=== PATIENT | female | born 1935 | race Caucasian/White ===

== ENCOUNTER 2020-07-04 11:04 | Emergency (ER) | payer MEDICARE, OTHER | END 2020-07-04 14:09 | disposition home or self-care (01) | LOC: FER 11:04 | DX: S01.511A Laceration without foreign body of lip, initial encounter (principal); S80.02XA Contusion of left knee, initial encounter; R07.9 Chest pain, unspecified; J43.9 Emphysema, unspecified; Z95.0 Presence of cardiac pacemaker; Z96.653 Presence of artificial knee joint, bilateral; Z88.0 Allergy status to penicillin; Z88.5 Allergy status to narcotic agent; Z79.01 Long term (current) use of anticoagulants; Z79.899 Other long term (current) drug therapy; W19.XXXA Unspecified fall, initial encounter; Y93.01 Activity, walking, marching and hiking; Y92.410 Unspecified street and highway as the place of occurrence of the external cause | CPT/HCPCS: 70450; 71046; 73560 ==

== ENCOUNTER 2021-06-24 12:48 | Emergency (ER) | payer MEDICARE, OTHER ==
[2021-06-24 15:29] LABS: BASOPHIL 0.4 % (0-2); EOSINOPHIL 0.8 % (0-7); HCT 43.6 % (37.0-47.0); HGB 14.5 g/dl (12.5-16.0); MCH 32.7 pg (25.0-31.0); MCHC 33.3 g/dL (32.0-36.0); MCV 98.4 fL (78.0-100.0); MONOCYTE 8.2 % (0-12); MPV 10.5 fL (6.0-9.5); NRBC 0; PLT 168 K/uL (150-400); RBC 4.43 M/uL (4.20-5.40); WBC 7.7 K/uL (4.0-10.5)
[2021-06-24 16:51] LABS: ALBUMIN 4.3 g/dL (3.4-5.0); BILIRUBIN - TOTAL 0.7 mg/dL (0.2-1.0); BUN/CREAT RATIO (CALC) 23.7 RATIO; CREATININE 0.76 mg/dL (0.51-0.95); GLOBULIN (CALCULATION) 2.8 g/dL; POTASSIUM 4.2 mmol/L (3.5-5.1); TOTAL PROTEIN 7.1 g/dL (6.4-8.2)
== END 2021-06-24 18:11 | disposition home or self-care (01) ==
LOC: FER 12:48
PROVIDERS: Emergency Medicine
DX: I10 Essential (primary) hypertension (principal); Z86.73 Personal history of transient ischemic attack (TIA), and cerebral infarction without residual deficits; Z79.01 Long term (current) use of anticoagulants; Z79.899 Other long term (current) drug therapy; Z88.0 Allergy status to penicillin; Z88.5 Allergy status to narcotic agent
CPT/HCPCS: 36415; 70450; 71045; 80053; 84484; 85025; 93005; J3490

== ENCOUNTER 2022-02-16 12:33 | Day surgery (SDCO) | payer MEDICARE, OTHER ==
[~2022-02-16] VITALS: Ht 162.6 cm; Wt 59.4 kg
[2022-02-16 14:03] LABS: BASOPHIL 0.5 % (0-2); EOSINOPHIL 0.8 % (0-7); HCT 41.7 % (37.0-47.0); HGB 14.2 g/dl (12.5-16.0); LYMPHOCYTE 16.1 % (15-48); MCH 32.7 pg (25.0-31.0); MCHC 34.1 g/dL (32.0-36.0); MCV 96.1 fL (78.0-100.0); MONOCYTE 8.9 % (0-12); MPV 10.8 fL (6.0-9.5); NEUTROPHIL 73.2 % (41-80); NRBC 0; PLT 171 K/uL (150-400); RBC 4.34 M/uL (4.20-5.40); RDW 12.4 % (11.5-14.0); WBC 7.8 K/uL (4.0-10.5)
[2022-02-16 14:14] LABS: INR 1.3 (0.9-1.2); PROTHROMBIN TIME 15.8 SECONDS (11.9-13.9); PTT 34.9 SECONDS (24.9-34.6)
[2022-02-16 14:29] LABS: ALBUMIN 4.3 g/dL (3.4-5.0); CREATININE 0.69 mg/dL (0.51-0.95); GLOBULIN (CALCULATION) 2.6 g/dL; TOTAL PROTEIN 6.9 g/dL (6.4-8.2)
[2022-02-16 15:23] LABS: BILIRUBIN NEGATIVE (NEGATIVE); BLOOD NEGATIVE Ery/uL (NEGATIVE); CLARITY CLEAR (CLEAR); COLOR YELLOW (YELLOW); GLUCOSE (U) NORMAL (NORMAL); LEUKOCYTES NEGATIVE Leu/uL (NEGATIVE); NITRITE NEGATIVE (NEGATIVE); PROTEIN NEGATIVE (NEGATIVE); SPECIFIC GRAVITY 1.015 (1.001-1.030); UROBILINOGEN 0.2 mg/dL (0.2-1.0)
[2022-02-16] MEDS ORDERED: SKIN TREATMENT400 GM TOP (16:35)
[2022-02-16] MEDS ORDERED: CALCIUM CITRAT200 MG PO (16:36)
[2022-02-16] MEDS ORDERED: ARTHRITIS PAIN150 GM TOP (16:37)
[2022-02-16] MEDS ORDERED: ELIQUIS5 MG PO (16:38)
[2022-02-16] MEDS ORDERED: PRINIVIL10 MG PO (16:38)
[2022-02-16] MEDS ORDERED: DIGITEK125 MCG PO (16:38)
[2022-02-16] MEDS ORDERED: TOPROL XL 50 MG50 MG PO (16:39)
[2022-02-16] MEDS ORDERED: BAZA PROTECT57 GM TOP (16:39)
[2022-02-16] MEDS ORDERED: FLONASE ALLER15.8 ML (16:41)
[2022-02-16] MEDS ORDERED: GAVISCON LIQUI355 ML PO (16:43)
[2022-02-16] MEDS ORDERED: IMODIUM2 MG PO (16:43)
[2022-02-16] MEDS ORDERED: CLARITIN10 MG PO (16:44)
[2022-02-16] MEDS ORDERED: MUCINEX 600MG600 MG PO (16:44)
[2022-02-16] MEDS ORDERED: ONDANSETRON ODT4 MG PO (16:45)
[2022-02-16] MEDS ORDERED: ARTIFICIAL TEA1 EACH OU (16:46)
[2022-02-16] MEDS ORDERED: TUSSIN DM SYRU118 ML PO (16:47)
[2022-02-16] MEDS ORDERED: ACETAMINOPHEN325 MG PO (16:47)
[2022-02-16] MEDS ORDERED: CORICIDIN HBP1 EACH PO (16:48)
[2022-02-17 06:12] LABS: BASOPHIL 0.5 % (0-2); EOSINOPHIL 1.2 % (0-7); HCT 38.7 % (37.0-47.0); HGB 12.9 g/dl (12.5-16.0); LYMPHOCYTE 17.6 % (15-48); MCH 32.2 pg (25.0-31.0); MCHC 33.3 g/dL (32.0-36.0); MCV 96.5 fL (78.0-100.0); MONOCYTE 14.1 % (0-12); MPV 10.3 fL (6.0-9.5); NEUTROPHIL 65.8 % (41-80); NRBC 0; PLT 143 K/uL (150-400); RBC 4.01 M/uL (4.20-5.40); RDW 12.6 % (11.5-14.0); WBC 6.5 K/uL (4.0-10.5)
[2022-02-17 06:38] LABS: BUN/CREAT RATIO (CALC) 19.5 RATIO; CREATININE 0.77 mg/dL (0.51-0.95); POTASSIUM 3.8 mmol/L (3.5-5.1)
--- NOTE | 2022-02-17 15:16 | NUR ---
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 She is independent with mobility. Therapy does not have recommendations for DME or HH services. A report was given to Ghazala Arechiga [facility] Nurse Development Educator, with patient's permission.
--- NOTE | 2022-02-17 23:02 | NUR ---
PT. WAS DROPPING BEATS AND SAMANTHA DOWN TO 52. [employer]OND EXPERT ORDERED PACEMAKER TO BE INTERROGATED. LUCIAN WERNER WITH [employer] SAID THAT EVERYTHING SEEMS TO BE WORKING PROPERLY AND THAT THE MODE HER PACEMAKER IS SET TO ALLOWS HER TO SKIP 2/4 BEATS BEFORE IT WILL DUAL CHAMBER PACE. SHE DID TELL ME TO CALL BACK IF THE PTS. HER GOT IN THE 30'S AND 40'S BECAUSE HER RATE IS SET AT 60. [employer] EXPERT NOTIFED AND TOOK THE HOLD OFF THE METOPROLOL SCHEDULED DOSE. ER,RN
[2022-02-18] MEDS ORDERED: HCTZ12.5 MG PO (09:51)
[2022-02-18] MEDS ORDERED: LISINOPRIL40 MG PO (09:51)
--- NOTE | 2022-02-18 10:58 | NUR ---
DISCHARGE TO BACK [facility] LAST BP 142/58 HR 60. PT WAS STABLE AT TIME OF DISCHARGE,INSTRUCTIONS WAS GIVEN TO PATIENT ATTEMPTED TO CALL [facility]AD[facility] AT [facility] TO DISCUSS MEDICATION CHANGES
== END 2022-02-18 10:42 | disposition home or self-care (01) ==
LOC: FER 12:33 → FTCU 15:41
PROVIDERS: Emergency Medicine; ADMIT Internal Medicine
DX: I16.1 Hypertensive emergency (principal); R13.10 Dysphagia, unspecified; M19.90 Unspecified osteoarthritis, unspecified site; I49.5 Sick sinus syndrome; I48.0 Paroxysmal atrial fibrillation; Z79.01 Long term (current) use of anticoagulants; Z79.899 Other long term (current) drug therapy; Z66 Do not resuscitate; Z20.822 Contact with and (suspected) exposure to COVID-19
CPT/HCPCS: 36415; 70450; 71045; 80048; 80053; 80162; 81003; 82962; 83880; 84484; 85025; 85610; 85730; 87088; 93005; 97162; 97166; G0378; J0360; J2405; U0002